=== PATIENT | male | born 1970 | race Caucasian/White ===

== ENCOUNTER 2024-08-22 06:06 | Day surgery (SDC) | payer BC ==
[2024-08-22] MEDS: Lactated Ringers 1,000 ML IV SCH (06:47)
[2024-08-22 07:26] LABS: ISTAT CREA 1.8 mg/dL (0.6-1.3); ISTAT K 3.9 mmol/L (3.5-4.9); ISTAT iCA 1.16 mmol/L (1.12-1.32)
[2024-08-22] MEDS ORDERED: Versed 2 MG/2 ML Injection ONE (08:01)
[2024-08-22] MEDS ORDERED: propofoL IV ONE ×2 (08:01→08:18)
[2024-08-22] MEDS ORDERED: Ephedrine Sulfate 50 MG/ML ONE (08:20)
[2024-08-22 09:17] VITALS: RESP 16; TEMP 96.9
[2024-08-22 09:29] VITALS: BP 117/77; PULSE 93; O2SAT 100
--- NOTE | 2024-08-24 10:07 | OP ---
SURGERY DATE/TIME: 08/22/2024 [id number] PREOPERATIVE DIAGNOSIS: Screening exam. POSTOPERATIVE DIAGNOSIS: Multiple colon polyps. PROCEDURE: Colonoscopy with hot snare polypectomies. SURGEON: Tomy Naylor MD ANESTHESIA: Medications were given by the anesthesia department. INDICATIONS: The patient is a 54-year-old white male patient presenting now for screening colonoscopy. He was apprised of the risks of the procedure and the risk of perforation, phlebitis, untoward reaction to medication, bleeding, and missed lesions. The patient verbalized understanding to have the procedure performed. DESCRIPTION OF PROCEDURE AND FINDINGS: Patient was given medication by the anesthesia department. He had continuous pulse oximetry, ECG monitoring, intermittent blood pressure monitoring during the examination. He was placed in the left lateral decubitus position. Digital rectal examination was performed and revealed normal anal sphincter tone, no masses. Flexible Olympus videocolonoscope was used to intubate the rectum. A view of the colon was developed sequentially to the cecum. Upon insertion and withdrawal were noted multiple colon polyps which were removed using a combination of hot and cold snare for polypectomies. The samples were retrieved for pathologic evaluation. Having seen no further polyps, the scope was removed. Patient tolerated procedure well, and was sent back to outpatient recovery in good condition. The prep was noted to be fair to good.
== END 2024-08-22 09:38 | disposition home or self-care (01) ==
LOC: SDC 06:06
PROVIDERS: ATTEND Family Medicine
DX: Z12.11 Encounter for screening for malignant neoplasm of colon (principal); E11.9 Type 2 diabetes mellitus without complications; I10 Essential (primary) hypertension; D12.2 Benign neoplasm of ascending colon; D12.0 Benign neoplasm of cecum; D12.4 Benign neoplasm of descending colon; D12.5 Benign neoplasm of sigmoid colon; D12.3 Benign neoplasm of transverse colon
CPT/HCPCS: 36415; 80047; 82947; 83036; 93005; J2250; J2704